=== PATIENT | female | born 1980 | race Caucasian/White ===

== ENCOUNTER 2018-03-27 03:06 | Emergency (ER) | payer OTHER ==
[~2018-03-27] VITALS: Ht 167.6 cm; Wt 58.5 kg
[2018-03-27] MEDS ORDERED: PROMETH-CODEIN 65 ML PO (03:27)
[2018-03-27] MEDS ORDERED: TESSALON PERLE100 M1 PO (03:27)
== END 2018-03-27 03:40 | disposition home or self-care (01) ==
LOC: ER 03:06
DX: J06.9 Acute upper respiratory infection, unspecified (principal); R05 Cough

== ENCOUNTER 2018-10-15 04:02 | Emergency (ER) | payer OTHER ==
[~2018-10-15] VITALS: Ht 167.6 cm; Wt 61.2 kg
[~2018-10-15 04:02] MED LIST: PROMETH-CODEIN 65 ML PO; TESSALON PERLE100 M1 PO
[2018-10-15] MEDS ORDERED: ZYNCOF 20-400120 ML PO (07:47)
[2018-10-15] MEDS ORDERED: ZITHROMAX500 MG PO (07:47)
[2018-10-15] MEDS ORDERED: ALBUTEROL2.5 MG/3 M IH (07:47)
== END 2018-10-15 07:58 | disposition home or self-care (01) ==
LOC: ER 04:02
DX: J20.9 Acute bronchitis, unspecified (principal)

== ENCOUNTER 2022-04-16 06:00 | Inpatient (IN) | payer OTHER ==
[~2022-04-16] VITALS: Ht 167.6 cm; Wt 58.1 kg
[~2022-04-16 06:00] MED LIST changes: +ALBUTEROL2.5 MG/3 M IH; +LEXA PO; +TRAZ PO; +ZITHROMAX500 MG PO; +ZYNCOF 20-400120 ML PO
[2022-04-17] MEDS ORDERED: LORAZEPAM1 MG (10:36)
[2022-04-17] MEDS ORDERED: ESCITALOPRAM OX10 MG (10:36)
[2022-04-17] MEDS ORDERED: TRAZODONE HCL150 MG (10:36)
== END 2022-04-18 15:19 | disposition home or self-care (01) | DRG 743 ==
LOC: CIR.AMB 06:00 → O/R 20:06 → OB/GYN 20:06
PROVIDERS: ADMIT Specialist; ATTEND Specialist
PROC: 0UT70ZZ Resection of Bilateral Fallopian Tubes, Open Approach (ICD-10-PCS; 2022-04-16)
PROC: 0UT90ZZ Resection of Uterus, Open Approach (ICD-10-PCS; principal; 2022-04-16 14:45)
DX: D25.1 Intramural leiomyoma of uterus (principal); N80.0 Endometriosis of uterus; Z20.822 Contact with and (suspected) exposure to COVID-19